=== PATIENT | female | born 1985 | race Two or more races ===

== ENCOUNTER 2018-11-29 09:26 | Emergency (ER) | payer OTHER ==
[~2018-11-29] VITALS: Ht 162.6 cm; Wt 102.1 kg
[2018-11-29 09:32] VITALS: BP 133/77
--- NOTE | 2018-11-29 09:46 | PHYS DOC ---
Adult General Chief Complaint Chief Complaint: ANKLE PROBLEM HPI HPI Patient is a 33 year old female with no significant medical history who presents to the ED today complaining of a sharp intermittent 8 out of 10 left lateral ankle pain that began yesterday after she missed 2 steps and fell rolling her left ankle. Patient denies any loss of consciousness. She states she felt some "popping" in the left ankle. She states she is able to bear weight to the left lower extremity pain. (RALPH WALSH APRN) Review of Systems Review of Systems Constitutional: Denies fever or chills [] Musculoskeletal: Reports left ankle pain Integument: Denies rash or skin lesions [] Neurologic: Denies headache, focal weakness or sensory changes [] All other systems were reviewed and found to be within normal limits, except as documented in this note. (RALPH WALSH APRN) Allergies Allergies Allergies Coded Allergies Type Severity Reaction Last Updated Verified No Known Drug Allergies 11/29/18 No (KOLTON HARVEY MD) Physical Exam Physical Exam Constitutional: Well developed, well nourished, no acute distress, non-toxic appearance. [] Skin: Warm, dry, no erythema, no rash. [] Back: No tenderness, no CVA tenderness. [] Extremities: Left ankle with no obvious deformity. Mild soft tissue swelling noted on the lateral aspect of the left ankle. Tenderness on palpation of the left lateral ankle. Full range of motion to the left ankle and foot as well as toes including flexion of the foot. +2 left pedal pulse. Cap refill less than 2 seconds the left toes. Neurologic: Alert and oriented X 3, normal motor function, normal sensory function, no focal deficits noted. [] Psychologic: Affect normal, judgement normal, mood normal. [] (RALPH WALSH APRN) Current Patient Data Vital Signs Vital Signs Date Time Temp Pulse Resp B/P (MAP) Pulse Ox O2 Delivery O2 Flow Rate FiO2 11/29/18 09:32 97.9 89 16 133/77 (95) 97 Room Air 97.9 (KOLTON HARVEY MD) EKG EKG [] (RALPH WALSH APRN) Radiology/Procedures Radiology/Procedures []PROCEDURE: ANKLE LEFT 3V Three-view left ankle dated 11/29/2018. No comparison available. Clinical data indication: Pain after injury. Findings compare 3 views left ankle show normal bony alignment. No displaced fracture. There is diffuse soft tissue swelling. Small bone fragment near the tip of the distal fibula. The talar dome is intact. There are also small bone fragments near the distal talus and proximal navicular bone on the lateral view dorsally. IMPRESSION: 1. No evidence of displaced fracture. 2. Small bone fragments along the dorsal margins of the talus and navicular seen only on the lateral view. This could be related to talonavicular ligamentous strain injury. If indicated, MRI would better evaluate. 3. Small bone fragment near the tip of the distal fibula is also indeterminate could represent acute or remote avulsion injury or accessory ossification center. Electronically signed by: Kyle Schultz MD (11/29/2018 10:03 AM) [facility] DICTATED and SIGNED BY: KYLE SCHULTZ MD DATE: 11/29/18 1003 (RALPH WALSH APRN) Course & Med Decision Making Course & Med Decision Making Pertinent Labs and Imaging studies reviewed. (See chart for details) This is a 33-year-old female patient presenting to the ED today with left ankle pain, that began yesterday after rolling the ankle. Left ankle x-rays interpreted by radiologist- No evidence of displaced fracture. Small bone fragments along the dorsal margins of the talus and navicular seen only on the lateral view. This could be related to talonavicular ligamentous strain injury. If indicated, MRI would better evaluate. Small bone fragment near the tip of the distal fibula is also indeterminate could represent acute or remote avulsion injury or accessory ossification center. Patient was placed in a stirrup splint as well as posterior leg splint by the orthodontic laboratory technician. Neurovascular exam done by me is normal. Provided crutches. Provided patient an orthopedic doctor and requested her to call in the course of this week. (RALPH WALSH APRN) Course & Med Decision Making Patient was seen by ADEN, I did not evaluate the patient unless otherwise specified in the chart. (KOLTON HARVEY MD) Dragon Disclaimer Dragon Disclaimer This electronic medical record was generated, in whole or in part, using a voice recognition dictation system. (RALPH WALSH APRN) Departure Departure Impression: Primary Impression: Closed avulsion fracture of distal end of right fibula Additional Impressions: Fall down steps Sprain of ligament of left ankle Disposition: HOME, SELF-CARE Condition: STABLE Referrals: NO PCP (PCP) GAYLE SORIA MD Call him today and set up a follow up appointment Patient Instructions: Avulsion Fracture Additional Instructions: You were evaluated in the emergency room for an ankle injury. You were noted to have possible ligament strain. You also were noted to have an avulsion fracture to the ankle. We put you in a temporary splint. Please call the orthopedic doctor and set up a follow-up appointment. Try to ice and elevate the extremity. Scripts Hydrocodone/Apap 5-325 (NORCO 5-325 TABLET) 1 Each Tablet 1 TAB PO Q6HRS, #20 TAB Prov: RALPH WALSH APRN 11/29/18 Problem Qualifiers Primary Impression: Closed avulsion fracture of distal end of right fibula Encounter type: initial encounter Qualified Codes: S82.831A - Other fracture of upper and lower end of right fibula, initial encounter for closed fracture Additional Impressions: Fall down steps Encounter type: initial encounter Qualified Codes: W10.8XXA - Fall (on) (from) other stairs and steps, initial encounter Sprain of ligament of left ankle Encounter type: initial encounter Qualified Codes: S93.402A - Sprain of unspecified ligament of left ankle, initial encounter RALPH WALSH APRN November 29, 2018 09:46 KOLTON HARVEY MD November 29, 2018 16:55
--- NOTE | 2018-11-29 10:06 | RAD ---
Three-view left ankle dated 11/29/2018. No comparison available. Clinical data indication: Pain after injury. Findings compare 3 views left ankle show normal bony alignment. No displaced fracture. There is diffuse soft tissue swelling. Small bone fragment near the tip of the distal fibula. The talar dome is intact. There are also small bone fragments near the distal talus and proximal navicular bone on the lateral view dorsally. IMPRESSION: 1. No evidence of displaced fracture. 2. Small bone fragments along the dorsal margins of the talus and navicular seen only on the lateral view. This could be related to talonavicular ligamentous strain injury. If indicated, MRI would better evaluate. 3. Small bone fragment near the tip of the distal fibula is also indeterminate could represent acute or remote avulsion injury or accessory ossification center. Electronically signed by: Kyle Schultz MD (11/29/2018 10:03 AM) [facility]
[2018-11-29] MEDS ORDERED: HYDR-3164 PO (10:45)
== END 2018-11-29 10:57 | disposition home or self-care (01) ==
LOC: ER 09:26
DX: S82.831A Other fracture of upper and lower end of right fibula, initial encounter for closed fracture (principal); S93.402A Sprain of unspecified ligament of left ankle, initial encounter; W10.8XXA Fall (on) (from) other stairs and steps, initial encounter; Y93.89 Activity, other specified; Y92.89 Other specified places as the place of occurrence of the external cause; Y99.8 Other external cause status
CPT/HCPCS: 29515; 73610; 99284-25

== ENCOUNTER 2019-02-13 20:08 | Emergency (ER) | payer OTHER ==
[~2019-02-13] VITALS: Ht 162.6 cm; Wt 102.1 kg
[~2019-02-13 20:08] MED LIST: HYDR-3164 PO
[2019-02-13 20:42] VITALS: BP 131/87
--- NOTE | 2019-02-13 21:25 | PHYS DOC ---
Past Medical History Past Medical History: Asthma (RALPH WALSH APRN) Past Surgical History: (RALPH WALSH APRN) Alcohol Use: Occasionally Drug Use: None (RALPH WALSH APRN) Adult General Chief Complaint Chief Complaint: FOOT INJURY PAIN HPI HPI Patient is a 33 year old female with history of asthma who presents to the ED today complaining of left little toe pain rated at 3/10 that began after her daughter jumped on her fifth toe. Patient states she believes she could've dislocated the toe. Patient states the pain is worse on touching the area. She states the pain is alleviated of immobilization. She describes the pain as throbbing and intermittent. (RALPH WALSH APRN) Review of Systems Review of Systems Constitutional: Denies fever or chills [] Musculoskeletal: Reports left little toe pain Integument: Denies rash or skin lesions [] Neurologic: Denies headache, focal weakness or sensory changes [] All other systems were reviewed and found to be within normal limits, except as documented in this note. (RALPH WALSH APRN) Allergies Allergies Allergies Coded Allergies Type Severity Reaction Last Updated Verified No Known Drug Allergies 11/29/18 No (MEIR DEVLIN DO) Physical Exam Physical Exam Constitutional: Well developed, well nourished, no acute distress, non-toxic appearance. [] Skin: Warm, dry, no erythema, no rash. [] Back: No tenderness, no CVA tenderness. [] Extremities: Soft tissue swelling noted on the left later toe. Tenderness diffusely on touching the toe. Limited range of motion to the toe due to pain. Adequate sensation to the toe. +2 left pedal pulse. Cap refill less than 2 seconds the left later toe. Neurologic: Alert and oriented X 3, normal motor function, normal sensory function, no focal deficits noted. [] Psychologic: Affect normal, judgement normal, mood normal. [] (RALPH WALSH APRN) Current Patient Data Vital Signs Vital Signs Date Time Temp Pulse Resp B/P (MAP) Pulse Ox O2 Delivery O2 Flow Rate FiO2 02/13/19 20:42 97.7 76 18 131/87 (102) 98 Room Air 97.7 (MEIR DEVLIN DO) Lab Values Laboratory Tests Test 02/13/19 21:00 POC Urine HCG, Qualitative Hcg negative (Negative) (MEIR DEVLIN DO) EKG EKG [] (RALPH WALSH APRN) Radiology/Procedures Radiology/Procedures [] (RALPH WALSH APRN) Radiology/Procedures PROCEDURE: FOOT LEFT 3V Exam: Left foot 3 views INDICATION: Left fifth digit toe pain after injury TECHNIQUE: Frontal, lateral and oblique views of the left foot Comparisons: None FINDINGS: Bony mineralization and development are normal. No acute or healed fractures. Soft tissues are unremarkable. Joint spaces are well-maintained. IMPRESSION: No acute osseous abnormality. Electronically signed by: Kenia Lobo MD (02/13/2019 10:27 PM) [facility] (MEIR DEVLIN DO) Course & Med Decision Making Course & Med Decision Making Pertinent Labs and Imaging studies reviewed. (See chart for details) This is a 33-year-old female patient presenting to the ED today with complaints of left little toe pain after her daughter jumped on it. Left foot x-rays interpreted by Dr. Devlin are negative for any acute findings. Ice elevation encouraged. OTC pain relievers. Follow-up with orthopedic doctor in one week if pain persists. (RALPH WALSH APRN) Dragon Disclaimer Dragon Disclaimer This electronic medical record was generated, in whole or in part, using a voice recognition dictation system. (RALPH WALSH APRN) Departure Departure Impression: Primary Impression: Sprain of toe, fifth, left Disposition: 01 HOME, SELF-CARE Condition: STABLE Referrals: NO PCP (PCP) GAYLE SORIA MD follow up in 1 week Patient Instructions: Joint Sprain Additional Instructions: You were evaluated in the emergency room for left toe pain, your left foot x- rays are negative for any acute findings. Try to ice and elevate the affected extremity. You can take [id number] pain relievers as needed. Follow-up with the provided orthopedic doctor in 1-2 weeks if symptoms persist. Attending Signature Attending Signature I have reviewed the PA/[employer] SALESPERSON's note and plan of care. I was available for consultation as needed during the patient's visit in the emergency department. I agree with the clinical impression, plan, and disposition. (MEIR DEVLIN DO) Problem Qualifiers Primary Impression: Sprain of toe, fifth, left Encounter type: initial encounter Qualified Codes: S93.505A - Unspecified sprain of left lesser toe(s), initial encounter RALPH WALSH APRN Feb 13, 2019 21:25 MEIR DEVLIN DO Feb 14, 2019 04:58
--- NOTE | 2019-02-13 22:30 | RAD ---
Exam: Left foot 3 views INDICATION: Left fifth digit toe pain after injury TECHNIQUE: Frontal, lateral and oblique views of the left foot Comparisons: None FINDINGS: Bony mineralization and development are normal. No acute or healed fractures. Soft tissues are unremarkable. Joint spaces are well-maintained. IMPRESSION: No acute osseous abnormality. Electronically signed by: Kenia Lobo MD (02/13/2019 10:27 PM) [facility]
== END 2019-02-13 22:01 | disposition home or self-care (01) ==
LOC: ER 20:08
DX: M79.675 Pain in left toe(s) (principal); J45.909 Unspecified asthma, uncomplicated; Z98.890 Other specified postprocedural states; S93.505A Unspecified sprain of left lesser toe(s), initial encounter; W50.0XXA Accidental hit or strike by another person, initial encounter; Y93.89 Activity, other specified; Y92.89 Other specified places as the place of occurrence of the external cause; Y99.8 Other external cause status
CPT/HCPCS: 73630; 81025; 99284